=== PATIENT | female | born 1990 | race Caucasian/White ===

== ENCOUNTER → 2024-04-14 11:01 | Outpatient (REF) | payer OTHER, SELFPAY | LOC: HWRAD 11:01 | PROVIDERS: ATTENDING PHYSICIAN Physician Assistant; FAMILY PHYSICIAN Nurse Practitioner | DX: R51.9 Headache, unspecified (principal); V89.2XXD Person injured in unspecified motor-vehicle accident, traffic, subsequent encounter | CPT/HCPCS: 70450 ==